=== PATIENT | male | born 1975 | race Two or more races ===

== ENCOUNTER 2023-12-02 15:34 | Emergency (ER) | payer OTHER, SELFPAY ==
[~2023-12-02] VITALS: Ht 180.3 cm; Wt 95.3 kg
[2023-12-02 16:53] LABS: Basophils # (auto) 0 10 ^3/uL (0-0.2); Basophils % (auto) 0.5 % (0.0-2.0); Eosinophils # (auto) 0.1 10 ^3/uL (0-0.8); Eosinophils % (auto) 0.8 % (0.0-7.0); Hematocrit 46.8 % (41.0-53.0); Hemoglobin 15.8 g/dL (13.5-17.5); Lymphocytes # (auto) 1.1 10 ^3/uL (0.4-5.4); Lymphocytes % (auto) 11.5 % (10.0-50.0); Mean Corpuscular Hgb Conc. 33.7 g/dL (32.0-36.0); Mean Corpuscular Volume 89.1 fL (80.0-100.0); Monocytes # (auto) 0.5 10 ^3/uL (0-1.3); Monocytes % (auto) 5.6 % (0.0-12.0); Neutrophils # (auto) 7.6 10 ^3/uL (1.6-8.6); Neutrophils % (auto) 81.6 % (37.0-80.0); Red Blood Cells 5.25 10^6/uL (4.5-5.90); White Blood Cell 9.4 10^3/uL (4.4-10.8)
[2023-12-02 17:12] LABS: Alanine Aminotransferase 27 U/L (7-40); Albumin 4.2 g/dL (3.2-4.8); Alkaline Phosphatase 85 U/L (46-116); Anion Gap 10 (5-15); Aspartate Aminotransferase 24 U/L (13-40); BUN/Creatinine Ratio 14.8 (10.0-20.0); Blood Urea Nitrogen 16 mg/dL (9-23); Calcium 9.6 mg/dL (8.7-10.4); Carbon Dioxide 22 mmol/L (20-30); Chloride 107 mmol/L (98-107); Glucose 101 mg/dL (74-106); Lipase 37 U/L (12-53); Potassium 4.1 mmol/L (3.5-5.1); Sodium 139 mmol/L (136-145)
[2023-12-02 17:13] LABS: Bilirubin, Total 0.5 mg/dL (0.2-1.0); Total Protein 7.5 g/dL (5.7-8.2)
[2023-12-02] MEDS: ONDANSETRON ODT 4 MG TAB PO ONE (17:13)
[2023-12-02] MEDS: KETOROLAC TROMETH 60MG/2ML VIAL IM ONE (17:16)
[2023-12-02 18:14] LABS: Urine Bacteria None Seen /hpf (None Seen)
[2023-12-02 18:20] LABS: Urine Blood 2+ /uL (Negative); Urine Clarity Clear (Clear); Urine Color Light-Yellow (Yellow); Urine Mucus FEW (None Seen); Urine Protein, UAD Negative (Negative); Urine Specific Gravity 1.022 (1.001-1.035); Urine Urobilinogen Normal (Negative); Urine WBC 4 /hpf (0 - 3)
[2023-12-02] MEDS ORDERED: NAP500T PO (18:28)
[2023-12-02] MEDS ORDERED: TAMS-35 PO (18:28)
[2023-12-02] MEDS ORDERED: ZOFR4T PO (18:28)
[2023-12-02 18:40] VITALS: BP 137/84; PULSE 60; RESP 18; TEMP 97.8; O2SAT 98
== END 2023-12-02 18:41 | disposition home or self-care (01) ==
LOC: EDBD 15:34 → ER 15:34
DX: N20.0 Calculus of kidney (principal)
CPT/HCPCS: 36415; 74176; 80053; 81001; 83690; 85025; 96372; 99285; J1885; Q0162